=== PATIENT | male | born 1960 | race African-American/Black ===

== ENCOUNTER → 2022-02-27 | Day surgery (SDC) | payer MEDICARE ==
[2022-02-27] VITALS (14 sets, daily range): BP systolic 153–180; BP diastolic 101–109
[~2022-02-27] VITALS: Ht 177.8 cm; Wt 107.5 kg
[~2022-02-27] MED LIST: FENTANYL CITRATE/PF 50MCG/ML 2ML VIAL IV NR; FENTANYL CITRATE/PF 50MCG/ML 2ML VIAL ONE; LIDOCAINE HCL 1% 20ML VIAL (Pyxis) INJ ONE; SODIUM BICARBONATE 4% (2.4MEQ) 5ML VIAL IV ONE
[2022-02-27 14:18] LABS: HEMATOCRIT 28.5 % (42.0-52.0); HEMOGLOBIN 9.5 g/dL (14.0-18.0)
== END | disposition home or self-care (01) ==
LOC: RAD 08:42
PROVIDERS: ATTEND Internal Medicine Nephrology
DX: I12.9 Hypertensive chronic kidney disease with stage 1 through stage 4 chronic kidney disease, or unspecified chronic kidney disease (principal); N18.4 Chronic kidney disease, stage 4 (severe); M10.9 Gout, unspecified; M19.90 Unspecified osteoarthritis, unspecified site; E78.5 Hyperlipidemia, unspecified; E03.9 Hypothyroidism, unspecified; D50.9 Iron deficiency anemia, unspecified; Z79.899 Other long term (current) drug therapy; Z98.890 Other specified postprocedural states
CPT/HCPCS: 36415; 50200; 76942; 85014; 85018; 88305; 88346; 88348; J3010; J3490